=== PATIENT | female | born 1945 | race Caucasian/White ===

== ENCOUNTER 2023-11-16 07:05 | Emergency (ER) | payer OTHER, MEDICAID ==
[~2023-11-16] VITALS: Ht 142.2 cm; Wt 70.3 kg
[2023-11-16 07:40] VITALS: BP_SYST 170; PULSE 86; RESP 15; TEMP 96.6; O2SAT 96
[2023-11-16] MEDS ORDERED: ACETAMINOPHEN 325 MG TABLET PO ONE (07:45)
[2023-11-16 08:08] LABS: ANION GAP 9 (5-15); CALCIUM 8.9 mg/dL (8.4-11.0); CARBON DIOXIDE 29 mmol/L (23-29); CHLORIDE 99 mmol/L (98-107); CREATININE 0.72 mg/dL (0.55-1.30); GLUCOSE 394 mg/dL (74-106); POTASSIUM 4.3 mmol/L (3.5-5.1); SODIUM SERUM 137 mmol/L (136-145); UREA NITROGEN, BLOOD 16 mg/dL (8-21)
[2023-11-16 08:11] LABS: INR 0.9 (0.8-1.2); PROTHROMBIN TIME 8.9 SECS (9.5-12.5)
[2023-11-16 08:14] LABS: HEMATOCRIT 37.9 % (36-48); HEMOGLOBIN 12.9 g/dL (12.0-16.0); MEAN CORPUSCULAR HEMOGLOBIN 30 pg (27-31); MEAN CORPUSCULAR HGB CONC 34 % (32-36); MEAN CORPUSCULAR VOLUME 89 fL (79.0-98.0); PLATELET COUNT (AUTO) 265 K/uL (130-430); RED BLOOD CELL COUNT(AUTO) 4.25 MIL/uL (4.2-6.2); RED CELL DISTRIBUTION WIDTH 13.1 % (9.0-15.0); WHITE BLOOD COUNT (AUTO) 9.4 K/uL (4.8-10.8)
[2023-11-16 08:15] LABS: ALANINE AMINOTRANSFERASE 22 U/L (12-78); ALBUMIN 3.3 g/dL (3.4-4.8); ASPARTATE AMINOTRANSFERASE 8 U/L (10-37); BASOPHILS % (AUTO) 0.5 % (0.0-2.0); BILIRUBIN,DIRECT 0.1 mg/dL (0.0-0.3); EOSINOPHILS # (AUTO) 0.2 K/uL (0.0-0.4); EOSINOPHILS % (AUTO) 2.6 % (0.0-4.0); LYMPHOCYTES # (AUTO) 2.2 K/uL (1.0-5.5); LYMPHOCYTES % (AUTO) 23.8 % (20.5-51.5); MONOCYTES # (AUTO) 0.7 K/uL (0.0-1.0); MONOCYTES % (AUTO) 7.5 % (1.7-9.3); NEUTROPHILS # (AUTO) 6.1 K/uL (1.8-7.7); NEUTROPHILS % (AUTO) 65.6 % (40.0-70.0); TOTAL BILIRUBIN 0.3 mg/dL (0.0-1.0)
[2023-11-16] MEDS ORDERED: LISI20TA30 PO (08:22)
[2023-11-16] MEDS ORDERED: AMLO5TAB92 PO (08:22)
[2023-11-16] MEDS ORDERED: GABAPENTIN PO (08:22)
[2023-11-16] MEDS ORDERED: LANTUS (08:22)
[2023-11-16] MEDS ORDERED: NITR0.4T47 SL (08:22)
[2023-11-16 09:56] LABS: BILIRUBIN,URINE NEGATIVE (NEGATIVE); CLARITY/URINE SL CLOUDY (CLEAR); COLOR,URINE YELLOW (YELLOW); GLUCOSE,URINE 3+ (NEGATIVE); KETONES,URINE NEGATIVE (NEGATIVE); LEUKOCYTE ESTERASE ,URINE NEGATIVE (NEGATIVE); NITRITE, URINE NEGATIVE (NEGATIVE); PROTEIN URINE 2+ (NEGATIVE); UROBILINOGEN,URINE 0.2 (0.2-1.0)
[2023-11-16 10:08] LABS: BLOOD, URINE TRACE (NEGATIVE)
[2023-11-16 10:11] LABS: BACTERIA,URINE MODERATE /HPF (None Seen)
[2023-11-16] MEDS ORDERED: NACL 0.9% 1,000 ML IV ONE (10:30)
[2023-11-16] MEDS ORDERED: INSULIN REGULAR, HUMAN 10 UNITS/0.1 ML, 3 ML VIAL IVP ONE (10:45)
[2023-11-16 11:10] LABS: COVID19 ANTIGEN SOFIA FIA NEGATIVE (NEGATIVE); INFLUENZA TYPE A Negative (NEGATIVE); INFLUENZA TYPE B NEGATIVE (NEGATIVE)
[2023-11-16] MEDS ORDERED: cefTRIAXone 1 GM IVPB PREMIX 50 ML IV ONE (11:45)
[2023-11-16] MEDS ORDERED: AUG875 PO (11:46)
[2023-11-16] MEDS ORDERED: ACET325T PO (11:46)
[2023-11-16 13:05] VITALS: BP_SYST 145; PULSE 66; RESP 19; TEMP 97; O2SAT 96
== END 2023-11-16 13:05 | disposition home or self-care (01) ==
LOC: SED 07:05
DX: R51.9 Headache, unspecified (principal); N39.0 Urinary tract infection, site not specified; R05.9 Cough, unspecified; M79.10 Myalgia, unspecified site; J45.909 Unspecified asthma, uncomplicated; E11.9 Type 2 diabetes mellitus without complications; Z79.899 Other long term (current) drug therapy; Z20.822 Contact with and (suspected) exposure to COVID-19
CPT/HCPCS: 99285; 96365; 70450; 71045; 96375; 87426; 80076; 80048; 81001; 82962; 85025; 85610; 85730; 86886; 86900; 86901; 84484; 36415; 93005; 76376; 87804 ×2; 81000; 81015; J0696; J1815

== ENCOUNTER 2023-11-18 16:49 | Inpatient (IN) | payer BC, MEDICAID ==
[~2023-11-18] VITALS: Ht 157.5 cm; Wt 71.2 kg
[~2023-11-18 16:49] MED LIST: ACET325T PO; AMLO5TAB92 PO; AUG875 PO; GABAPENTIN PO; LANTUS; LISI20TA30 PO; NITR0.4T47 SL
[2023-11-18 16:55] VITALS: BP_SYST 193; PULSE 120; RESP 22; TEMP 98.5; O2SAT 98
[2023-11-18] MEDS ORDERED: ACETAMINOPHEN 325 MG SUPP.RECT RC ONE (17:30)
[2023-11-18] MEDS ORDERED: ACETAMINOPHEN 650 MG SUPP.RECT RC ONE (17:30)
[2023-11-18] MEDS ORDERED: NACL 0.9% 1,000 ML IV ONE (17:45)
[2023-11-18 18:01] LABS: ABG O2 SAT% ESTIMATE 90.7 % (94.0-100.0); BLOOD GAS BASE EXCESS -2.1 mmol/L (-3.0-3.0); BLOOD GAS HCO3 22.2 mmol/L (21.0-27.0); BLOOD GAS PH 7.396 (7.350-7.450)
[2023-11-18 18:02] LABS: COVID19 ANTIGEN SOFIA FIA NEGATIVE (NEGATIVE)
[2023-11-18 18:03] LABS: INFLUENZA TYPE B NEGATIVE (NEGATIVE)
[2023-11-18 18:05] LABS: ALLEN'S TEST POSITIVE (P)
[2023-11-18 18:09] LABS: INFLUENZA TYPE A POSITIVE (NEGATIVE)
[2023-11-18] MEDS ORDERED: OSELTAMIVIR PHOSPHATE 30 MG CAPSULE PO ONE (18:15)
[2023-11-18 18:23] LABS: BASOPHILS % (AUTO) 0.2 % (0.0-2.0); EOSINOPHILS % (AUTO) 0.1 % (0.0-4.0); HEMATOCRIT 36.8 % (36-48); HEMOGLOBIN 12.6 g/dL (12.0-16.0); LYMPHOCYTES # (AUTO) 0.4 K/uL (1.0-5.5); LYMPHOCYTES % (AUTO) 3.1 % (20.5-51.5); MEAN CORPUSCULAR HEMOGLOBIN 31 pg (27-31); MEAN CORPUSCULAR HGB CONC 34 % (32-36); MEAN CORPUSCULAR VOLUME 89 fL (79.0-98.0); MONOCYTES # (AUTO) 0.7 K/uL (0.0-1.0); MONOCYTES % (AUTO) 5.5 % (1.7-9.3); NEUTROPHILS # (AUTO) 11.2 K/uL (1.8-7.7); NEUTROPHILS % (AUTO) 91.1 % (40.0-70.0); PLATELET COUNT (AUTO) 186 K/uL (130-430); RED BLOOD CELL COUNT(AUTO) 4.13 MIL/uL (4.2-6.2); RED CELL DISTRIBUTION WIDTH 13.1 % (9.0-15.0); WHITE BLOOD COUNT (AUTO) 12.3 K/uL (4.8-10.8)
[2023-11-18] MEDS ORDERED: OSELTAMIVIR PHOSPHATE 75 MG CAPSULE PO ONE (18:30)
[2023-11-18 18:39] LABS: ANION GAP 14 (5-15); CALCIUM 8.3 mg/dL (8.4-11.0); CARBON DIOXIDE 24 mmol/L (23-29); CHLORIDE 97 mmol/L (98-107); CREATININE 0.69 mg/dL (0.55-1.30); GLUCOSE 340 mg/dL (74-106); POTASSIUM 3.8 mmol/L (3.5-5.1); SODIUM SERUM 135 mmol/L (136-145); UREA NITROGEN, BLOOD 13 mg/dL (8-21)
[2023-11-18 18:41] LABS: PROTHROMBIN TIME 10.1 SECS (9.5-12.5)
[2023-11-18 18:44] LABS: BILIRUBIN,URINE NEGATIVE (NEGATIVE); BLOOD, URINE 2+ (NEGATIVE); COLOR,URINE YELLOW (YELLOW); GLUCOSE,URINE 3+ (NEGATIVE); KETONES,URINE 3+ (NEGATIVE); LEUKOCYTE ESTERASE ,URINE NEGATIVE (NEGATIVE); NITRITE, URINE NEGATIVE (NEGATIVE); PROTEIN URINE 3+ (NEGATIVE); UROBILINOGEN,URINE 0.2 (0.2-1.0)
[2023-11-18 18:46] LABS: ALANINE AMINOTRANSFERASE 16 U/L (12-78); ASPARTATE AMINOTRANSFERASE 20 U/L (10-37); BILIRUBIN,DIRECT 0.1 mg/dL (0.0-0.3); TOTAL BILIRUBIN 0.4 mg/dL (0.0-1.0); TOTAL PROTEIN, SERUM 6.6 g/dL (6.4-8.3)
[2023-11-18] MEDS ORDERED: ALBUTEROL SULFATE 0.083% 2.5 MG/3 ML VIAL.NEB INH ONE (19:00)
[2023-11-18] MEDS ORDERED: IPRATROPIUM BROM 0.5 MG/2.5 ML VIAL.NEB (ATROVENT) INH ONE (19:00)
[2023-11-18 19:41] LABS: BACTERIA,URINE MODERATE /HPF (None Seen); CLARITY/URINE SLIGHTLY CLOUDY (CLEAR); WBC,URINE 0-3 /HPF (0-3)
[2023-11-18 19:42] LABS: COARSE GRANULAR CASTS,URINE 0-10 /LPF (None Seen); URINE AMORPHOUS URATE 3+ /HPF (None Seen); YEAST,URINE Moderate /HPF (None Seen)
[2023-11-18 19:43] LABS: MUCUS,URINE None Seen /LPF (None Seen)
[2023-11-18] MEDS ORDERED: ACETAMINOPHEN 325 MG TABLET PO PRN ×2 (20:15→20:30)
[2023-11-18] MEDS ORDERED: DEXTROSE 50% JECT 50 ML DISP.SYRIN IVP PRN (20:15)
[2023-11-18] MEDS ORDERED: ONDANSETRON HCL 4 MG/2 ML VIAL IVP PRN (20:15)
[2023-11-18] MEDS ORDERED: HYDROcodone/ACETAMIN 5-325 MG TAB (NORCO/ VICODIN) PO PRN ×2 (20:15→20:30)
[2023-11-18] MEDS ORDERED: cefTRIAXone 1 GM IVPB PREMIX 50 ML IV ONE (20:15)
[2023-11-18] MEDS ORDERED: ALBUTEROL SULFATE 0.083% 2.5 MG/3 ML VIAL.NEB INH PRN (20:15)
[2023-11-18] MEDS ORDERED: cefTRIAXone 1 GM in D5W 50 ML IV ONE (20:30)
[2023-11-18] MEDS ORDERED: INSULIN GLARGINE 100 UNITS/ML, 10 ML VIAL SUBCUT SCH (21:00)
[2023-11-18] MEDS ORDERED: cefTRIAXone 1 GM VIAL ONE (21:49)
[2023-11-18] MEDS: NACL 0.9% 1,000 ML IV SCH (21:52)
[2023-11-18] MEDS: cefTRIAXone 1 GM in D5W 50 ML IV SCH (22:08)
[2023-11-19 07:50] LABS: BASOPHILS % (AUTO) 0.2 % (0.0-2.0); HEMATOCRIT 33.5 % (36-48); HEMOGLOBIN 11.5 g/dL (12.0-16.0); LYMPHOCYTES # (AUTO) 0.9 K/uL (1.0-5.5); LYMPHOCYTES % (AUTO) 8.2 % (20.5-51.5); MEAN CORPUSCULAR HEMOGLOBIN 30 pg (27-31); MEAN CORPUSCULAR HGB CONC 34 % (32-36); MEAN CORPUSCULAR VOLUME 88 fL (79.0-98.0); MONOCYTES # (AUTO) 0.8 K/uL (0.0-1.0); MONOCYTES % (AUTO) 7.5 % (1.7-9.3); NEUTROPHILS # (AUTO) 9.3 K/uL (1.8-7.7); NEUTROPHILS % (AUTO) 84.1 % (40.0-70.0); PLATELET COUNT (AUTO) 184 K/uL (130-430); RED BLOOD CELL COUNT(AUTO) 3.79 MIL/uL (4.2-6.2); RED CELL DISTRIBUTION WIDTH 13.2 % (9.0-15.0); WHITE BLOOD COUNT (AUTO) 11.1 K/uL (4.8-10.8)
[2023-11-19 07:57] LABS: HEMOGLOBIN A1C 12.73 % (<5.7)
[2023-11-19] MEDS: INSULIN Lispro 100 UNITS/ML, 3 ML VIAL (humaLOG) SUBCUT SCH ×2 (08:02→12:30)
[2023-11-19] MEDS: NACL 0.9% 1,000 ML IV SCH ×3 (08:30→21:49)
[2023-11-19] MEDS ORDERED: ASPIRIN 81 MG TAB.CHEW PO SCH (09:00)
[2023-11-19] MEDS ORDERED: ENOXAPARIN SODIUM 40 MG/0.4 ML SYRINGE SUBCUT SCH (09:00)
[2023-11-19] MEDS: LevETIRAcetam 500 MG/5 ML UDC ORAL LIQUID GT SCH ×2 (09:04→21:48)
[2023-11-19] MEDS: FAMOTIDINE 20 MG TABLET PO SCH (09:04)
[2023-11-19] MEDS: OSELTAMIVIR PHOSPHATE 75 MG CAPSULE PO SCH ×2 (09:04→21:49)
[2023-11-19] MEDS: cefTRIAXone 1 GM in D5W 50 ML IV SCH (09:10)
[2023-11-19] MEDS ORDERED: cefTRIAXone 1 GM VIAL ONE (09:19)
[2023-11-19 09:32] VITALS: BP_SYST 132; PULSE 108; O2SAT 99
[2023-11-19 09:40] LABS: ANION GAP 9 (5-15); CALCIUM 7.8 mg/dL (8.4-11.0); CARBON DIOXIDE 25 mmol/L (23-29); CHLORIDE 102 mmol/L (98-107); CREATININE 0.73 mg/dL (0.55-1.30); GLUCOSE 298 mg/dL (74-106); POTASSIUM 3.3 mmol/L (3.5-5.1); SODIUM SERUM 136 mmol/L (136-145); UREA NITROGEN, BLOOD 14 mg/dL (8-21)
[2023-11-19] MEDS ORDERED: DAPA5TAB PO (10:21)
[2023-11-19] MEDS ORDERED: ATOR40TA68 PO (10:21)
[2023-11-19] MEDS ORDERED: guaiFENesin/DEXTROMETHORPHAN 1 EACH TAB.ER.12H PO ONE (11:30)
[2023-11-19] MEDS ORDERED: INSULIN GLARGINE 100 UNITS/ML, 10 ML VIAL SUBCUT ONE (11:30)
[2023-11-19 13:05] VITALS: O2SAT 92
[2023-11-19 19:00] VITALS: BP_SYST 155; PULSE 105; RESP 20; TEMP 99; O2SAT 97
[2023-11-19 19:50] VITALS: O2SAT 96
[2023-11-19 20:00] VITALS: BP_SYST 155; PULSE 105; RESP 20; TEMP 99; O2SAT 97
[2023-11-19] MEDS ORDERED: INSULIN GLARGINE 100 UNITS/ML, 10 ML VIAL SUBCUT SCH (21:00)
[2023-11-19] MEDS ORDERED: MELATONIN 3 MG TABLET PO PRN (21:15)
[2023-11-19] MEDS: PIPERACILLIN/TAZO 3.375/DEX-IS 50 ML IV SCH (21:48)
[2023-11-19] MEDS: ATORVASTATIN 20 MG TABLET PO SCH (21:48)
[2023-11-19] MEDS: guaiFENesin/DEXTROMETHORPHAN 1 EACH TAB.ER.12H PO SCH (21:49)
[2023-11-20] VITALS: BP_SYST 148; PULSE 110; RESP 18; TEMP 99.2; O2SAT 98
[2023-11-20] MEDS: LORazepam 2 MG/ML VIAL IVP PRN ×2 (00:30→04:41)
[2023-11-20] MEDS: PIPERACILLIN/TAZO 3.375/DEX-IS 50 ML IV SCH ×4 (01:38→18:13)
[2023-11-20] MEDS: NACL 0.9% 1,000 ML IV SCH (06:26)
[2023-11-20] MEDS: INSULIN LISPRO SLIDING SCALE 100 UNITS/ML, 3 ML VIAL (humaLOG) SUBCUT PRN (06:34)
[2023-11-20 06:38] LABS: ANION GAP 10 (5-15); CARBON DIOXIDE 27 mmol/L (23-29); CHLORIDE 103 mmol/L (98-107); GLUCOSE 188 mg/dL (74-106); POTASSIUM 3.3 mmol/L (3.5-5.1); SODIUM SERUM 140 mmol/L (136-145)
[2023-11-20 06:39] LABS: CREATININE 0.62 mg/dL (0.55-1.30); UREA NITROGEN, BLOOD 9 mg/dL (8-21)
[2023-11-20 07:19] LABS: BASOPHILS # (AUTO) 0.1 K/uL (0.0-0.2); BASOPHILS % (AUTO) 0.7 % (0.0-2.0); EOSINOPHILS % (AUTO) 0.1 % (0.0-4.0); HEMATOCRIT 34.5 % (36-48); HEMOGLOBIN 11.7 g/dL (12.0-16.0); LYMPHOCYTES # (AUTO) 1.2 K/uL (1.0-5.5); LYMPHOCYTES % (AUTO) 10.1 % (20.5-51.5); MEAN CORPUSCULAR HEMOGLOBIN 30 pg (27-31); MEAN CORPUSCULAR HGB CONC 34 % (32-36); MEAN CORPUSCULAR VOLUME 89 fL (79.0-98.0); MONOCYTES # (AUTO) 0.8 K/uL (0.0-1.0); MONOCYTES % (AUTO) 6.9 % (1.7-9.3); NEUTROPHILS % (AUTO) 82.2 % (40.0-70.0); PLATELET COUNT (AUTO) 182 K/uL (130-430); RED BLOOD CELL COUNT(AUTO) 3.86 MIL/uL (4.2-6.2); RED CELL DISTRIBUTION WIDTH 13.1 % (9.0-15.0); WHITE BLOOD COUNT (AUTO) 12.2 K/uL (4.8-10.8)
[2023-11-20] MEDS ORDERED: POTASSIUM CHLORIDE 20 MEQ TABLET.ER PO ONE (08:15)
[2023-11-20] MEDS ORDERED: INSULIN GLARGINE 100 UNITS/ML, 10 ML VIAL SUBCUT SCH (09:00)
[2023-11-20] MEDS: LevETIRAcetam 500 MG/5 ML UDC ORAL LIQUID GT SCH ×2 (10:18→21:35)
[2023-11-20] MEDS: FAMOTIDINE 20 MG TABLET PO SCH (10:18)
[2023-11-20] MEDS: OSELTAMIVIR PHOSPHATE 75 MG CAPSULE PO SCH ×2 (10:18→20:58)
[2023-11-20 10:30] VITALS: O2SAT 96
[2023-11-20] MEDS: guaiFENesin/DEXTROMETHORPHAN 1 EACH TAB.ER.12H PO SCH ×2 (10:30→21:00)
[2023-11-20 12:51] VITALS: BP_SYST 150; PULSE 107; RESP 19; TEMP 98.6; O2SAT 98
[2023-11-20] MEDS ORDERED: CARVEDILOL 6.25 MG TABLET (COREG) PO ONE (13:30)
[2023-11-20 16:50] VITALS: BP_SYST 147; PULSE 109; RESP 18; TEMP 99; O2SAT 97
[2023-11-20 20:00] VITALS: BP_SYST 138; PULSE 108; RESP 18; TEMP 98.8; O2SAT 98
[2023-11-20 20:20] VITALS: O2SAT 97
[2023-11-20] MEDS: ATORVASTATIN 20 MG TABLET PO SCH (20:58)
[2023-11-20] MEDS: QUEtiapine FUMARATE 25 MG TABLET PO SCH (20:58)
[2023-11-20] MEDS ORDERED: CARVEDILOL 6.25 MG TABLET (COREG) PO SCH (21:00)
[2023-11-20] MEDS ORDERED: LevETIRAcetam 500 MG/5 ML UDC ORAL LIQUID GT ONE (21:30)
[2023-11-21] VITALS (9 sets, daily range): BP systolic 98–145; PULSE 77–98; RESP 16–18; TEMP 96–98.1; O2SAT 81–98
[2023-11-21] MEDS: PIPERACILLIN/TAZO 3.375/DEX-IS 50 ML IV SCH ×4 (00:03→18:02)
[2023-11-21 04:27] LABS: BASOPHILS % (AUTO) 0.3 % (0.0-2.0); EOSINOPHILS # (AUTO) 0.1 K/uL (0.0-0.4); EOSINOPHILS % (AUTO) 0.7 % (0.0-4.0); HEMATOCRIT 31.1 % (36-48); HEMOGLOBIN 10.7 g/dL (12.0-16.0); LYMPHOCYTES % (AUTO) 22.3 % (20.5-51.5); MEAN CORPUSCULAR HEMOGLOBIN 31 pg (27-31); MEAN CORPUSCULAR HGB CONC 34 % (32-36); MEAN CORPUSCULAR VOLUME 89 fL (79.0-98.0); MONOCYTES # (AUTO) 0.7 K/uL (0.0-1.0); MONOCYTES % (AUTO) 7.9 % (1.7-9.3); NEUTROPHILS # (AUTO) 6.3 K/uL (1.8-7.7); NEUTROPHILS % (AUTO) 68.8 % (40.0-70.0); PLATELET COUNT (AUTO) 174 K/uL (130-430); RED CELL DISTRIBUTION WIDTH 13.7 % (9.0-15.0); WHITE BLOOD COUNT (AUTO) 9.2 K/uL (4.8-10.8)
[2023-11-21 05:00] LABS: ANION GAP 7 (5-15); CALCIUM 7.9 mg/dL (8.4-11.0); CARBON DIOXIDE 29 mmol/L (23-29); CHLORIDE 106 mmol/L (98-107); CREATININE 0.87 mg/dL (0.55-1.30); GLUCOSE 134 mg/dL (74-106); POTASSIUM 3.2 mmol/L (3.5-5.1); SODIUM SERUM 142 mmol/L (136-145); UREA NITROGEN, BLOOD 10 mg/dL (8-21)
[2023-11-21] MEDS: guaiFENesin/DEXTROMETHORPHAN 1 EACH TAB.ER.12H PO SCH ×2 (09:39→21:00)
[2023-11-21] MEDS: OSELTAMIVIR PHOSPHATE 75 MG CAPSULE PO SCH ×2 (09:39→22:10)
[2023-11-21] MEDS: FAMOTIDINE 20 MG TABLET PO SCH (09:39)
[2023-11-21] MEDS ORDERED: INSULIN GLARGINE 100 UNITS/ML, 10 ML VIAL SUBCUT ONE (09:45)
[2023-11-21] MEDS ORDERED: POTASSIUM CHLORIDE 20 MEQ TABLET.ER PO ONE (09:45)
[2023-11-21] MEDS ORDERED: DOCUSATE SODIUM 100 MG CAPSULE PO PRN (12:00)
[2023-11-21] MEDS: LevETIRAcetam 500 MG/5 ML UDC ORAL LIQUID GT SCH (22:10)
[2023-11-21] MEDS: ATORVASTATIN 20 MG TABLET PO SCH (22:11)
[2023-11-21] MEDS: QUEtiapine FUMARATE 25 MG TABLET PO SCH (22:11)
[2023-11-21] MEDS: CARVEDILOL 3.125 MG TABLET (COREG) PO SCH (22:11)
[2023-11-21] MEDS: INSULIN LISPRO SLIDING SCALE 100 UNITS/ML, 3 ML VIAL (humaLOG) SUBCUT PRN (22:20)
[2023-11-22] VITALS (7 sets, daily range): BP systolic 102–173; PULSE 70–93; RESP 16–20; TEMP 98–99.1; O2SAT 93–98
[2023-11-22] MEDS: PIPERACILLIN/TAZO 3.375/DEX-IS 50 ML IV SCH ×5 (00:28→23:31)
[2023-11-22 05:40] LABS: BASOPHILS % (AUTO) 0.1 % (0.0-2.0); EOSINOPHILS # (AUTO) 0.2 K/uL (0.0-0.4); EOSINOPHILS % (AUTO) 1.9 % (0.0-4.0); HEMATOCRIT 33.3 % (36-48); HEMOGLOBIN 11.4 g/dL (12.0-16.0); LYMPHOCYTES % (AUTO) 24.8 % (20.5-51.5); MEAN CORPUSCULAR HEMOGLOBIN 31 pg (27-31); MEAN CORPUSCULAR HGB CONC 34 % (32-36); MEAN CORPUSCULAR VOLUME 89 fL (79.0-98.0); MONOCYTES % (AUTO) 11.7 % (1.7-9.3); NEUTROPHILS # (AUTO) 5.1 K/uL (1.8-7.7); NEUTROPHILS % (AUTO) 61.5 % (40.0-70.0); PLATELET COUNT (AUTO) 189 K/uL (130-430); RED BLOOD CELL COUNT(AUTO) 3.72 MIL/uL (4.2-6.2); RED CELL DISTRIBUTION WIDTH 13.4 % (9.0-15.0); WHITE BLOOD COUNT (AUTO) 8.3 K/uL (4.8-10.8)
[2023-11-22 06:12] LABS: ANION GAP 9 (5-15); CALCIUM 8.4 mg/dL (8.4-11.0); CARBON DIOXIDE 28 mmol/L (23-29); CHLORIDE 108 mmol/L (98-107); CREATININE 0.89 mg/dL (0.55-1.30); GLUCOSE 144 mg/dL (74-106); SODIUM SERUM 145 mmol/L (136-145); UREA NITROGEN, BLOOD 10 mg/dL (8-21)
[2023-11-22] MEDS ORDERED: INSULIN GLARGINE 100 UNITS/ML, 10 ML VIAL SUBCUT SCH (09:00)
[2023-11-22] MEDS: OSELTAMIVIR PHOSPHATE 75 MG CAPSULE PO SCH ×2 (09:04→21:22)
[2023-11-22] MEDS: FAMOTIDINE 20 MG TABLET PO SCH (09:04)
[2023-11-22] MEDS: CARVEDILOL 3.125 MG TABLET (COREG) PO SCH ×2 (09:04→21:22)
[2023-11-22] MEDS: LevETIRAcetam 500 MG/5 ML UDC ORAL LIQUID GT SCH ×2 (09:08→21:21)
[2023-11-22] MEDS: INSULIN LISPRO SLIDING SCALE 100 UNITS/ML, 3 ML VIAL (humaLOG) SUBCUT PRN ×3 (11:59→21:53)
[2023-11-22] MEDS: guaiFENesin/DEXTROMETHORPHAN 1 EACH TAB.ER.12H PO SCH (21:00)
[2023-11-22] MEDS: ATORVASTATIN 20 MG TABLET PO SCH (21:22)
[2023-11-23 01:05] VITALS: BP_SYST 152; PULSE 74; RESP 20; TEMP 97.8; O2SAT 96
[2023-11-23] MEDS: PIPERACILLIN/TAZO 3.375/DEX-IS 50 ML IV SCH ×4 (06:11→23:52)
[2023-11-23 08:00] VITALS: BP_SYST 147; PULSE 87; RESP 17; TEMP 98.2; O2SAT 93
[2023-11-23] MEDS: LevETIRAcetam 500 MG/5 ML UDC ORAL LIQUID GT SCH ×2 (09:17→22:01)
[2023-11-23] MEDS: OSELTAMIVIR PHOSPHATE 75 MG CAPSULE PO SCH (09:17)
[2023-11-23] MEDS: FAMOTIDINE 20 MG TABLET PO SCH (09:17)
[2023-11-23] MEDS: CARVEDILOL 3.125 MG TABLET (COREG) PO SCH ×2 (09:21→22:03)
[2023-11-23] MEDS ORDERED: guaiFENesin/DEXTROMETHORPHAN 1 EACH TAB.ER.12H PO ONE (09:30)
[2023-11-23 11:30] VITALS: BP_SYST 156; PULSE 85; RESP 17; TEMP 98.6; O2SAT 94
[2023-11-23] MEDS: INSULIN LISPRO SLIDING SCALE 100 UNITS/ML, 3 ML VIAL (humaLOG) SUBCUT PRN ×2 (12:41→22:00)
[2023-11-23 17:32] VITALS: BP_SYST 167; PULSE 75; RESP 17; TEMP 98.4; O2SAT 96
[2023-11-23] MEDS ORDERED: hydrALAZINE HCL 10 MG TABLET PO ONE (18:00)
[2023-11-23 20:00] VITALS: BP_SYST 144; PULSE 92; RESP 20; TEMP 97; O2SAT 99
[2023-11-23] MEDS: guaiFENesin/DEXTROMETHORPHAN 1 EACH TAB.ER.12H PO SCH (22:01)
[2023-11-23] MEDS: ATORVASTATIN 20 MG TABLET PO SCH (22:02)
[2023-11-24 00:10] VITALS: BP_SYST 159; PULSE 76; RESP 20; TEMP 97.6; O2SAT 96
[2023-11-24] MEDS: PIPERACILLIN/TAZO 3.375/DEX-IS 50 ML IV SCH (05:14)
[2023-11-24] MEDS: INSULIN LISPRO SLIDING SCALE 100 UNITS/ML, 3 ML VIAL (humaLOG) SUBCUT PRN (06:30)
[2023-11-24 08:00] VITALS: BP_SYST 165; PULSE 80; RESP 18; TEMP 98.2; O2SAT 95
[2023-11-24] MEDS: LevETIRAcetam 500 MG/5 ML UDC ORAL LIQUID GT SCH (09:31)
[2023-11-24] MEDS: CARVEDILOL 3.125 MG TABLET (COREG) PO SCH (09:31)
[2023-11-24] MEDS: FAMOTIDINE 20 MG TABLET PO SCH (09:31)
[2023-11-24] MEDS: guaiFENesin/DEXTROMETHORPHAN 1 EACH TAB.ER.12H PO SCH (09:32)
[2023-11-24 10:37] VITALS: BP_SYST 154; PULSE 75; RESP 17; TEMP 98.2; O2SAT 95
[2023-11-24 11:12] VITALS: PULSE 74; RESP 16; TEMP 97.1; O2SAT 93
[2023-11-24 11:35] VITALS: O2SAT 96
== END 2023-11-24 11:30 | disposition home health service (06) | DRG 871 ==
LOC: SED 16:49 → STU 20:09 → SMU 11-20 15:14
PROVIDERS: ADMIT Internal Medicine; ATTEND Internal Medicine
DX: A41.9 Sepsis, unspecified organism (principal); G93.41 Metabolic encephalopathy; J96.01 Acute respiratory failure with hypoxia; N39.0 Urinary tract infection, site not specified; K04.7 Periapical abscess without sinus; S01.01XA Laceration without foreign body of scalp, initial encounter; Z20.822 Contact with and (suspected) exposure to COVID-19; X58.XXXA Exposure to other specified factors, initial encounter; J10.1 Influenza due to other identified influenza virus with other respiratory manifestations; Z79.899 Other long term (current) drug therapy; Y93.89 Activity, other specified; Y92.89 Other specified places as the place of occurrence of the external cause; Y99.8 Other external cause status
CPT/HCPCS: 36415; 36600; 71045; 80048; 80076; 81000; 81001; 81015; 82803; 82962; 83037; 83605; 83735; 84484; 85025; 85610-TC; 85730-TC; 87040; 87086; 92610-GN; 93005; 94640; 94760; 96365; 97116-GP; 97530-GP; 99285; G0378; G9035; J0696; J1650; J1815; J2060; J2543; J7060